=== PATIENT | male | born 1950 | race Caucasian/White ===

== ENCOUNTER 2017-09-04 13:34 | Inpatient (IN) | payer MEDICARE, OTHER ==
[~2017-09-04 13:34] MED LIST: BIVALIRUDIN 250 MG/50 ML NS BAG IVPB
[2017-09-04] MEDS ORDERED: MIDAZOLAM 1 MG/ML 2 ML INJ (16:20)
[2017-09-04] MEDS ORDERED: NITROGLYCERIN (IC) 100 MCG/ML INJ (16:20)
[2017-09-04] MEDS ORDERED: VERAPAMIL 5 MG INJ (16:20)
[2017-09-04] MEDS ORDERED: FENTAnyl 50 MCG/ML VIAL (16:20)
[2017-09-04] MEDS ORDERED: HEPARIN 1000 UNITS/ML 10 ML INJ (16:20)
[2017-09-04] MEDS ORDERED: TICAGRELOR 90 MG TABLET (17:47)
[2017-09-04] MEDS ORDERED: ASPIRIN 325 MG TAB (17:48)
[2017-09-04] MEDS ORDERED: morphine 2 MG INJ IV (18:00)
[2017-09-04] MEDS ORDERED: ACETAMINOPHEN 325 MG TAB PO (18:00)
[2017-09-04] MEDS ORDERED: ONDANSETRON 4 MG INJ IV (18:00)
[2017-09-04] MEDS ORDERED: AL HYDROX/MG HYDROX/SIMETH 30 ML CUP PO (18:00)
[2017-09-04] MEDS: SOD CHLORIDE 0.9% 1,000 ML IV (18:40)
[2017-09-04] MEDS ORDERED: GLUCOSE GEL 15 GRAM TUBE BUCCAL (19:00)
[2017-09-04] MEDS ORDERED: GLUCAGON 1 MG INJ IM (19:00)
[2017-09-04] MEDS ORDERED: DEXTROSE 50% 50 ML SYRINGE IV ×2 (19:00)
[2017-09-04] MEDS ORDERED: GLUCOSE GEL 15 GRAM TUBE PO ×2 (19:00)
[2017-09-04] MEDS: INSULIN ASPART [NOVOLOG] 3 ML PEN SC ×2 (19:23→22:28)
[2017-09-05] MEDS: INSULIN ASPART [NOVOLOG] 3 ML PEN SC ×4 (02:38→17:33)
[2017-09-05] MEDS: ACCU-CHEK XX (02:39)
[2017-09-05 05:56] LABS: ADD MAN DIFF? NO
[2017-09-05 06:06] LABS: BASOPHILS % 0.3 % (0.0-2.0); EOSINOPHILS # 0.1 10^3/ul (0.0-0.5); EOSINOPHILS % 0.7 % (0.0-7.0); HEMATOCRIT 44.8 % (42.0-52.0); HEMOGLOBIN 15.7 g/dl (14.0-18.0); LYMPHOCYTES # 1.9 10^3/ul (0.8-2.9); LYMPHOCYTES % 16.3 % (15.0-51.0); MEAN CORPUSCULAR VOLUME 88.4 fl (82.0-101.0); MEAN PLATELET VOLUME 10.6 fl (7.4-10.4); MONOCYTES % 8.7 % (0.0-11.0); NEUTROPHIL # 8.6 10^3/ul (1.6-7.5); NEUTROPHILS % 73.3 % (39.0-77.0); PLATELET COUNT 205 10^3/UL (140-415); RED BLOOD COUNT 5.07 10^6/ul (4.70-6.10); RED CELL DISTRIBUTION WIDTH 13.5 % (11.5-14.5)
[2017-09-05 06:06] LABS: WHITE BLOOD COUNT 11.7 10^3/ul (4.8-10.8)
[2017-09-05 06:45] LABS: ANION GAP 20 (8-16); BLOOD UREA NITROGEN 12 mg/dl (7-20); CALCIUM 9.6 mg/dl (8.4-10.2); CARBON DIOXIDE 23 mmol/L (21-31); CHLORIDE 102 mmol/L (97-110); GLUCOSE 206 mg/dl (70-220); MAGNESIUM 1.9 mg/dl (1.7-2.5); PHOSPHORUS 3.9 mg/dl (2.5-4.9); POTASSIUM 3.9 mmol/L (3.5-5.1); SODIUM 141 mmol/L (135-144)
[2017-09-05 06:47] LABS: CK INDEX 7.3; CREATINE KINASE 215 IU/L (23-200)
[2017-09-05] MEDS: NICOTINE (14 MG/24 HR) PATCH TRANSDERM (12:26)
[2017-09-05] MEDS: TICAGRELOR 90 MG TABLET PO (14:02)
[2017-09-05] MEDS ORDERED: MIDAZOLAM 1 MG/ML 2 ML INJ (18:13)
[2017-09-05] MEDS ORDERED: LISINOPRIL 20 MG TAB PO (21:00)
[2017-09-05] MEDS ORDERED: TICAGRELOR 90 MG TABLET PO (21:00)
[2017-09-05] MEDS ORDERED: ATORVASTATIN 80 MG TAB PO (21:00)
[2017-09-06] MEDS ORDERED: ASPIRIN 81 MG TAB PO (09:00)
[2017-09-06] MEDS ORDERED: NIFEdipine (XL) 30 MG TAB PO (09:00)
[2017-09-06] MEDS ORDERED: NICOTINE (14 MG/24 HR) PATCH TRANSDERM (09:00)
== END 2017-09-05 18:26 | disposition home or self-care (01) | DRG 247 ==
LOC: CCL 13:34 → SDS 13:34 → CCL 17:58 → REC 17:58 → ICU 18:35
PROVIDERS: Internal Medicine
PROC: 027135Z Dilation of Coronary Artery, Two Arteries with Two Drug-eluting Intraluminal Devices, Percutaneous Approach (ICD-10-PCS; principal; 2017-09-04 16:18)
PROC: 4A023N7 Measurement of Cardiac Sampling and Pressure, Left Heart, Percutaneous Approach (ICD-10-PCS; 2017-09-04 16:18)
PROC: B211YZZ Fluoroscopy of Multiple Coronary Arteries using Other Contrast (ICD-10-PCS; 2017-09-04 16:18)
DX: I21.4 Non-ST elevation (NSTEMI) myocardial infarction (principal); I25.10 Atherosclerotic heart disease of native coronary artery without angina pectoris; E11.9 Type 2 diabetes mellitus without complications; E78.5 Hyperlipidemia, unspecified; I10 Essential (primary) hypertension; J44.9 Chronic obstructive pulmonary disease, unspecified; F17.200 Nicotine dependence, unspecified, uncomplicated; Z79.84 Long term (current) use of oral hypoglycemic drugs
CPT/HCPCS: 80048; 82550; 82553; 82962; 83735; 84100; 84484; 85025; 87081; 93458

== ENCOUNTER 2018-03-08 16:04 | Inpatient (IN) | payer MEDICARE, OTHER ==
[2018-03-08 16:47] LABS: ADD MAN DIFF? NO
[2018-03-08 16:56] LABS: WHITE BLOOD COUNT 13.1 10^3/ul (4.8-10.8)
[2018-03-08 16:56] LABS: BASOPHIL # 0.1 10^3/ul (0.0-0.1); BASOPHILS % 0.4 % (0.0-2.0); EOSINOPHILS % 0.3 % (0.0-7.0); HEMATOCRIT 21.7 % (42.0-52.0); HEMOGLOBIN 7.3 g/dl (14.0-18.0); LYMPHOCYTES # 2.4 10^3/ul (0.8-2.9); LYMPHOCYTES % 18.7 % (15.0-51.0); MEAN CORPUSCULAR HEMOGLOBIN 31.7 pg (29.0-33.0); MEAN CORPUSCULAR HGB CONC 33.6 g/dl (32.0-37.0); MEAN CORPUSCULAR VOLUME 94.3 fl (82.0-101.0); MEAN PLATELET VOLUME 10.5 fl (7.4-10.4); MONOCYTE # 0.8 10^3/ul (0.3-0.9); MONOCYTES % 5.7 % (0.0-11.0); NEUTROPHIL # 9.4 10^3/ul (1.6-7.5); NEUTROPHILS % 71.8 % (39.0-77.0); NUCLEATED RED BLOOD CELLS # 0.1 10^3/ul (0.0-0.0); NUCLEATED RED BLOOD CELLS% 0.4 /100WBC (0.0-0.0); PLATELET COUNT 329 10^3/UL (140-415); RED CELL DISTRIBUTION WIDTH 14.7 % (11.5-14.5)
[2018-03-08 17:14] LABS: INR 0.94; PROTIME 12.7 Sec (11.9-14.9)
[2018-03-08 17:15] LABS: PARTIAL THROMBOPLASTIN TIME 21.3 Sec (23.0-35.0)
[2018-03-08] MEDS: SOD CHLORIDE 0.9% 500 ML IV (17:17)
[2018-03-08 17:18] LABS: ALANINE AMINOTRANSFERASE 46 IU/L (13-69); ALBUMIN 3.7 g/dl (3.3-4.9); ALKALINE PHOSPHATASE 47 IU/L (42-121); ANION GAP 12 (5-13); ASPARTATE AMINO TRANSFERASE 26 IU/L (15-46); BILIRUBIN,INDIRECT 0.2 mg/dl (0-1.1); BILIRUBIN,TOTAL 0.2 mg/dl (0.2-1.3); BLOOD UREA NITROGEN 27 mg/dl (7-20); CALCIUM 8.5 mg/dl (8.4-10.2); CARBON DIOXIDE 21 mmol/L (21-31); CHLORIDE 101 mmol/L (97-110); CREATININE 0.69 mg/dl (0.61-1.24); Estimated GFR > 60 mL/min (>60); GLUCOSE 329 mg/dl (70-220); POTASSIUM 4.8 mmol/L (3.5-5.1); SODIUM 134 mmol/L (135-144)
[2018-03-08] MEDS: PANTOPRAZOLE IV 80 MG in SOD CHLORIDE 0.9% 100 ML IVPB (17:18)
[2018-03-08] MEDS: PANTOPRAZOLE IV 80 MG in SOD CHLORIDE 0.9% 100 ML IV (17:18)
[2018-03-08] MEDS ORDERED: SOD CHLORIDE 0.9% 1,000 ML IV (19:27)
[2018-03-08] MEDS ORDERED: ACETAMINOPHEN 325 MG TAB PO (19:30)
[2018-03-08] MEDS ORDERED: ONDANSETRON 4 MG INJ IV (19:30)
[2018-03-08] MEDS: SOD CHLORIDE 0.9% 1,000 ML IV (19:56)
[2018-03-09] MEDS ORDERED: NACL 0.9% 3 ML SYG IV (01:30)
[2018-03-09] MEDS ORDERED: ONDANSETRON 4 MG INJ IV (01:30)
[2018-03-09] MEDS ORDERED: GLUCAGON 1 MG INJ IM (02:00)
[2018-03-09] MEDS ORDERED: DEXTROSE 50% 50 ML SYRINGE IV ×2 (02:00)
[2018-03-09] MEDS: PANTOPRAZOLE IV 80 MG in SOD CHLORIDE 0.9% 100 ML IV ×4 (02:00→22:00)
[2018-03-09] MEDS ORDERED: GLUCOSE GEL 15 GRAM TUBE BUCCAL (02:00)
[2018-03-09] MEDS ORDERED: GLUCOSE GEL 15 GRAM TUBE PO ×2 (02:00)
[2018-03-09] MEDS: SOD CHLORIDE 0.45% 1,000 ML IV ×2 (02:29→11:36)
[2018-03-09] MEDS: LINAGLIPTIN 5 MG TABLET PO ×2 (07:55→17:22)
[2018-03-09] MEDS: metFORMIN 500 MG TAB PO ×2 (07:55→17:22)
[2018-03-09] MEDS: GLIMEPIRIDE 2 MG TAB PO ×2 (08:02→20:35)
[2018-03-09 08:16] LABS: ADD UMIC NO; UR ASCORBIC ACID NEGATIVE (NEGATIVE); UR BILIRUBIN (Dip) NEGATIVE (NEGATIVE); UR BLOOD (Dip) NEGATIVE (NEGATIVE); UR CLARITY CLEAR (CLEAR); UR COLOR STRAW (YELLOW); UR GLUCOSE (Dip) 3+ mg/dL (NEGATIVE); UR KETONES (Dip) 1+ mg/dL (NEGATIVE); UR LEUKOCYTE ESTERASE (Dip) NEGATIVE Leu/ul (NEGATIVE); UR NITRITE (Dip) NEGATIVE (NEGATIVE); UR TOTAL PROTEIN (Dip) NEGATIVE (NEGATIVE); UR UROBILINOGEN (Dip) NEGATIVE (NEGATIVE)
[2018-03-09] MEDS: NIFEdipine (XL) 30 MG TAB PO (08:53)
[2018-03-09] MEDS: LISINOPRIL 20 MG TAB PO ×2 (08:53→20:36)
[2018-03-09] MEDS ORDERED: LINAGLIPTIN METFORMIN PO (09:00)
[2018-03-09] MEDS: INSULIN ASPART [NOVOLOG] 3 ML PEN SC ×4 (09:35→20:46)
[2018-03-09 10:28] LABS: ADD MAN DIFF? NO
[2018-03-09 10:35] LABS: BASOPHILS % 0.3 % (0.0-2.0); EOSINOPHILS % 0.2 % (0.0-7.0); HEMATOCRIT 23.1 % (42.0-52.0); HEMOGLOBIN 7.9 g/dl (14.0-18.0); LYMPHOCYTES # 1.7 10^3/ul (0.8-2.9); LYMPHOCYTES % 15.9 % (15.0-51.0); MEAN CORPUSCULAR HEMOGLOBIN 30.5 pg (29.0-33.0); MEAN CORPUSCULAR HGB CONC 34.2 g/dl (32.0-37.0); MEAN CORPUSCULAR VOLUME 89.2 fl (82.0-101.0); MEAN PLATELET VOLUME 10.6 fl (7.4-10.4); MONOCYTE # 1.1 10^3/ul (0.3-0.9); MONOCYTES % 9.7 % (0.0-11.0); NEUTROPHIL # 7.8 10^3/ul (1.6-7.5); NEUTROPHILS % 71.9 % (39.0-77.0); NUCLEATED RED BLOOD CELLS # 0.1 10^3/ul (0.0-0.0); NUCLEATED RED BLOOD CELLS% 0.7 /100WBC (0.0-0.0); PLATELET COUNT 225 10^3/UL (140-415); RED BLOOD COUNT 2.59 10^6/ul (4.70-6.10)
[2018-03-09 10:35] LABS: WHITE BLOOD COUNT 10.9 10^3/ul (4.8-10.8)
[2018-03-09 10:51] LABS: ALANINE AMINOTRANSFERASE 38 IU/L (13-69); ALBUMIN 3.1 g/dl (3.3-4.9); ALKALINE PHOSPHATASE 37 IU/L (42-121); ANION GAP 7 (5-13); ASPARTATE AMINO TRANSFERASE 18 IU/L (15-46); BILIRUBIN,INDIRECT 0.3 mg/dl (0-1.1); BILIRUBIN,TOTAL 0.3 mg/dl (0.2-1.3); BLOOD UREA NITROGEN 22 mg/dl (7-20); CALCIUM 8.3 mg/dl (8.4-10.2); CARBON DIOXIDE 25 mmol/L (21-31); CHLORIDE 104 mmol/L (97-110); CREATININE 0.75 mg/dl (0.61-1.24); Estimated GFR > 60 mL/min (>60); GLUCOSE 273 mg/dl (70-220); POTASSIUM 4.2 mmol/L (3.5-5.1); SODIUM 136 mmol/L (135-144); TOTAL PROTEIN 5.3 g/dl (6.1-8.1)
[2018-03-09] MEDS ORDERED: PROPOFOL 40 ML (14:32)
[2018-03-09 18:38] LABS: TROPONIN-I < 0.012 ng/ml (0.000-0.120)
[2018-03-09] MEDS: ATORVASTATIN 40 MG TAB PO (20:36)
[2018-03-09] MEDS: ZOLPIDEM 5 MG TAB PO (22:39)
[2018-03-10] MEDS: SOD CHLORIDE 0.45% 1,000 ML IV
[2018-03-10 01:44] LABS: TROPONIN-I < 0.012 ng/ml (0.000-0.120)
[2018-03-10] MEDS: PANTOPRAZOLE IV 80 MG in SOD CHLORIDE 0.9% 100 ML IV ×2 (04:16→17:21)
[2018-03-10 06:17] LABS: ABNORMAL IP MESSAGE 1; HEMATOCRIT 20.9 % (42.0-52.0); MEAN CORPUSCULAR HEMOGLOBIN 30.2 pg (29.0-33.0); MEAN CORPUSCULAR HGB CONC 32.5 g/dl (32.0-37.0); MEAN CORPUSCULAR VOLUME 92.9 fl (82.0-101.0); MEAN PLATELET VOLUME 10.2 fl (7.4-10.4); NUCLEATED RED BLOOD CELLS% 0.8 /100WBC (0.0-0.0); PLATELET COUNT 193 10^3/UL (140-415); POSITIVE DIFF @See below; RED BLOOD COUNT 2.25 10^6/ul (4.70-6.10); RED CELL DISTRIBUTION WIDTH 15.9 % (11.5-14.5)
[2018-03-10 06:17] LABS: WHITE BLOOD COUNT 8.8 10^3/ul (4.8-10.8)
[2018-03-10 06:24] LABS: ADD MAN DIFF? YES; HEMOGLOBIN 6.8 g/dl (14.0-18.0)
[2018-03-10 06:44] LABS: ALANINE AMINOTRANSFERASE 41 IU/L (13-69); ALBUMIN 2.9 g/dl (3.3-4.9); ALBUMIN/GLOBULIN RATIO 1.52; ALKALINE PHOSPHATASE 32 IU/L (42-121); ANION GAP 9 (5-13); ASPARTATE AMINO TRANSFERASE 19 IU/L (15-46); BILIRUBIN,INDIRECT 0.2 mg/dl (0-1.1); BILIRUBIN,TOTAL 0.2 mg/dl (0.2-1.3); BLOOD UREA NITROGEN 19 mg/dl (7-20); CALCIUM 8.4 mg/dl (8.4-10.2); CARBON DIOXIDE 27 mmol/L (21-31); CHLORIDE 104 mmol/L (97-110); CREATININE 0.87 mg/dl (0.61-1.24); Estimated GFR > 60 mL/min (>60); GLUCOSE 155 mg/dl (70-220); MAGNESIUM 1.8 mg/dl (1.7-2.5); PHOSPHORUS 3.7 mg/dl (2.5-4.9); POTASSIUM 4.2 mmol/L (3.5-5.1); SODIUM 140 mmol/L (135-144); TOTAL PROTEIN 4.8 g/dl (6.1-8.1)
[2018-03-10 06:48] LABS: TROPONIN-I < 0.012 ng/ml (0.000-0.120)
[2018-03-10 06:52] LABS: FREE THYROXINE INDEX (Calc) 3.61 ug/ml (0.65-3.89); T3 UPTAKE 41.5 % (23.5-40.5); T4 (THYROXINE) 8.7 ug/dl (5.5-11.0)
[2018-03-10 07:03] LABS: CHOLESTEROL 96 mg/dl (100-200)
[2018-03-10 07:03] LABS: CHOL/HDL RATIO 4.8 RATIO; HDL CHOLESTEROL 20 mg/dl (30-78); LDL CHOLESTEROL,CALCULATED 34 mg/dl; TRIGLYCERIDES 208 mg/dl (0-149)
[2018-03-10] MEDS: LINAGLIPTIN 5 MG TABLET PO ×2 (07:52→17:21)
[2018-03-10] MEDS: metFORMIN 500 MG TAB PO ×2 (07:52→17:21)
[2018-03-10] MEDS: INSULIN ASPART [NOVOLOG] 3 ML PEN SC ×4 (07:58→20:24)
[2018-03-10] MEDS: GLIMEPIRIDE 2 MG TAB PO ×2 (08:59→20:17)
[2018-03-10] MEDS: NIFEdipine (XL) 30 MG TAB PO (09:00)
[2018-03-10] MEDS: LISINOPRIL 20 MG TAB PO ×2 (09:00→20:17)
[2018-03-10 09:14] LABS: ANISOCYTOSIS 2+ (0-0); BAND NEUTROPHILS #M 0.3 10^3/ul (0.0-0.6); BAND NEUTROPHILS % (M) 4 % (0-4); EOSINOPHILS % (M) 3 % (0-7); ERYTHROBLAST% (NRBC) (M) 4 % (0-0); LYMPHOCYTES #M 1.2 10^3/ul (0.8-2.9); LYMPHOCYTES % (M) 14 % (15-51); MONOCYTE #M 0.3 10^3/ul (0.3-0.9); MONOCYTES % (M) 4 % (0-11); MYELOCYTES % (M) 1 % (0-0); PLATELET ESTIMATE NORMAL; POLYCHROMASIA 2+ (0-0); SEG NEUT #M 6.5 10^3/ul (1.6-7.5); SEGMENTED NEUTROPHILS (M) % 74 % (39-77); SMUDGE%M 35 % (0-0)
[2018-03-10 12:48] LABS: IMMEDIATE SPIN CROSSMATCH 1 3
[2018-03-10] MEDS: ATORVASTATIN 40 MG TAB PO (20:15)
[2018-03-10] MEDS: ZOLPIDEM 5 MG TAB PO (23:37)
[2018-03-11] MEDS: SOD CHLORIDE 0.45% 1,000 ML IV (00:15)
[2018-03-11] MEDS: PANTOPRAZOLE IV 80 MG in SOD CHLORIDE 0.9% 100 ML IV (04:37)
[2018-03-11 06:30] LABS: ADD MAN DIFF? NO
[2018-03-11 06:32] LABS: WHITE BLOOD COUNT 8.2 10^3/ul (4.8-10.8)
[2018-03-11 06:32] LABS: BASOPHILS % 0.2 % (0.0-2.0); EOSINOPHILS # 0.1 10^3/ul (0.0-0.5); EOSINOPHILS % 1.1 % (0.0-7.0); HEMATOCRIT 23.9 % (42.0-52.0); HEMOGLOBIN 8.1 g/dl (14.0-18.0); LYMPHOCYTES # 1.7 10^3/ul (0.8-2.9); LYMPHOCYTES % 20.2 % (15.0-51.0); MEAN CORPUSCULAR HGB CONC 33.9 g/dl (32.0-37.0); MEAN CORPUSCULAR VOLUME 91.6 fl (82.0-101.0); MEAN PLATELET VOLUME 10.1 fl (7.4-10.4); MONOCYTE # 0.8 10^3/ul (0.3-0.9); MONOCYTES % 10.1 % (0.0-11.0); NEUTROPHIL # 5.3 10^3/ul (1.6-7.5); NEUTROPHILS % 64.5 % (39.0-77.0); NUCLEATED RED BLOOD CELLS # 0.1 10^3/ul (0.0-0.0); NUCLEATED RED BLOOD CELLS% 0.6 /100WBC (0.0-0.0); PLATELET COUNT 195 10^3/UL (140-415); RED BLOOD COUNT 2.61 10^6/ul (4.70-6.10); RED CELL DISTRIBUTION WIDTH 16.2 % (11.5-14.5)
[2018-03-11 07:22] LABS: ANION GAP 9 (5-13); BLOOD UREA NITROGEN 13 mg/dl (7-20); CALCIUM 8.5 mg/dl (8.4-10.2); CARBON DIOXIDE 27 mmol/L (21-31); CHLORIDE 104 mmol/L (97-110); CREATININE 0.92 mg/dl (0.61-1.24); Estimated GFR > 60 mL/min (>60); GLUCOSE 169 mg/dl (70-220); POTASSIUM 3.9 mmol/L (3.5-5.1); SODIUM 140 mmol/L (135-144)
[2018-03-11] MEDS: LISINOPRIL 20 MG TAB PO (08:25)
[2018-03-11] MEDS: NIFEdipine (XL) 30 MG TAB PO (08:25)
[2018-03-11] MEDS: metFORMIN 500 MG TAB PO (08:27)
[2018-03-11] MEDS: GLIMEPIRIDE 2 MG TAB PO (08:27)
[2018-03-11] MEDS: LINAGLIPTIN 5 MG TABLET PO (08:27)
[2018-03-11] MEDS: INSULIN ASPART [NOVOLOG] 3 ML PEN SC (08:35)
== END 2018-03-11 09:55 | disposition home or self-care (01) | DRG 378 ==
LOC: TEL 19:28 → E/R 16:04
PROC: 0DJ08ZZ Inspection of Upper Intestinal Tract, Via Natural or Artificial Opening Endoscopic (ICD-10-PCS; principal; 2018-03-09 13:30)
PROC: 30233N1 Transfusion of Nonautologous Red Blood Cells into Peripheral Vein, Percutaneous Approach (ICD-10-PCS; 2018-03-09 13:30)
DX: K26.0 Acute duodenal ulcer with hemorrhage (principal); D62 Acute posthemorrhagic anemia; R65.10 Systemic inflammatory response syndrome (SIRS) of non-infectious origin without acute organ dysfunction; K29.81 Duodenitis with bleeding; K31.89 Other diseases of stomach and duodenum; K29.00 Acute gastritis without bleeding; I10 Essential (primary) hypertension; J44.9 Chronic obstructive pulmonary disease, unspecified; I25.2 Old myocardial infarction; F17.210 Nicotine dependence, cigarettes, uncomplicated; E11.9 Type 2 diabetes mellitus without complications; E78.5 Hyperlipidemia, unspecified; Z79.02 Long term (current) use of antithrombotics/antiplatelets; Z79.82 Long term (current) use of aspirin; Z95.5 Presence of coronary angioplasty implant and graft
CPT/HCPCS: 36415; 36430; 80048; 80053; 80061; 81003; 82962; 83036; 83735; 84100; 84436; 84479; 84484; 85025; 85610; 85730; 86850; 86900; 86901; 86920; 93005; 93306; 96365; 96366; 99285-25